=== PATIENT | male | born 1980 | race Caucasian/White ===

== ENCOUNTER 2018-07-03 18:25 | Emergency (ER) | payer BC ==
--- NOTE | 2018-07-03 18:41 | EDPHY ---
H & P Stated Complaint: Left lower extremity pain and deformity after fall Time Seen by Provider: 07/03/18 18:34 HPI/ROS: CHIEF COMPLAINT: Left leg pain HISTORY OF PRESENT ILLNESS: The patient presents the ED with complaints of pain to his proximal left lower leg is result of an injury sustained while walking today. The patient reportedly stepped into a deep hole in experienced a hyperextension injury involving his proximal tibia fibula. The patient reportedly felt a pop. The patient does complain of some vague paresthesias throughout his lower leg. He denies any weakness. He denies any additional injury. Patient reports his pain is moderate to severe with attempted ambulation and mild when sitting in bed with his leg held extension. REVIEW OF SYSTEMS: Constitutional: normal mentation Eyes: No visual changes ENT: no oral trauma Respiratory: no rib pain, no difficulty breathing Cardiac: No chest pain Gastrointestinal: No nausea, no vomiting, no abdominal pain Genitourinary: No hematuria, no dysuria Musculoskeletal: As above Skin: no abrasions, no lacerations Neurological: No headache, no numbness, no weakness Back: No midline pain - Personal History Current Tetanus/Diphtheria Vaccine: Unsure Current Tetanus Diphtheria and Acellular Pertussis (TDAP): Unsure - Medical/Surgical History Hx Asthma: No Hx Chronic Respiratory Disease: No Hx Diabetes: No Hx Cardiac Disease: No Hx Renal Disease: No Hx Cirrhosis: No Hx Alcoholism: No Hx HIV/AIDS: No Hx Splenectomy or Spleen Trauma: No - Social History Smoking Status: Current every day smoker - Physical Exam Exam: General Appearance: Alert, no distress Head: Atraumatic Eyes: Pupils equal, round, reactive ENT, Mouth: No hemotympanum, no oral trauma Neck: Nontender, trachea midline Respiratory: No chest wall tender, subcutaneous air, lungs clear bilaterally Cardiovascular: Regular rate and rhythm Abdomen: Abdomen is soft and nontender, pelvis stable Skin: No lacerations, No abrasion Back: No midline T/L/S pain Extremities: Tenderness, swelling over left proximal fibula and tibia Neurological: A&Ox3, normal motor function, normal sensory exam Constitutional: Initial Vital Signs Temperature (C) 36.9 C 07/03/18 18:31 Heart Rate 100 07/03/18 18:31 Respiratory Rate 16 07/03/18 18:31 Blood Pressure 143/85 H 07/03/18 18:31 O2 Sat (%) 96 07/03/18 18:31 O2 Delivery Mode Room Air Allergies/Adverse Reactions: No Known Allergies Allergy (Unverified 07/03/18 18:44) Medical Decision Making - Diagnostics Imaging Results: Imaging Impressions Tibia/Fibula X-Ray 07/03/18 18:38 Impression: Constellation of findings suggest a possible ACL tear. Consider obtaining dedicated knee x-rays. Knee x-ray: Four view images, reviewed by myself. Impression fibular head fracture noted. ED Course/Re-evaluation: Patient presents the ED for evaluation of left knee pain following mechanical fall. The patient was noted to be neurovascularly intact. Patient was taken for an x-ray which demonstrated proximal fibular head fracture. There was some suggestion of possibility of a effusion and internal injury to the knee. The patient has no additional injury. The patient had a x-ray of the knee and tib-fib. The patient will be placed in a knee immobilizer. He is given the contact number of our on-call orthopedic surgeon to schedule a follow-up appointment with. The patient will be discharged home with customary aftercare instructions and return precautions. He is given a prescription for Bath for pain relief. Differential Diagnosis: Differential diagnosis considered includes fracture, sprain, dislocation, arterial injury Departure - Departure Disposition: Home, Routine, Self-Care Clinical Impression: Fracture, fibula, proximal, Left knee sprain Condition: Good Instructions: Leg Fracture (ED) Additional Instructions: 1. Crutches as needed for ambulation. 2. Wear splint for comfort 3. Contact the orthopedic surgeon you have been referred to for a follow-up visit. 4. Take Ibuprofen or Motrin 600 mg by mouth three times a day. 5. Bath as needed for pain. Referrals: Chau Deleon MD [Medical Doctor] - As per Instructions
[2018-07-03] MEDS ORDERED: HYDROCOD/APAP 5/325 PREPACK#6 BTL TAKEHOME ONE (19:54)
[2018-07-03 20:05] VITALS: BP 128/86
== END 2018-07-03 20:03 | disposition home or self-care (01) ==
DX: S82.492A Other fracture of shaft of left fibula, initial encounter for closed fracture (principal); W18.42XA Slipping, tripping and stumbling without falling due to stepping into hole or opening, initial encounter; Y93.01 Activity, walking, marching and hiking
CPT/HCPCS: L1830